=== PATIENT | male | born 1965 | race Caucasian/White ===

== ENCOUNTER 2021-01-07 14:56 | Emergency (ER) | payer OTHER, SELFPAY ==
[2021-01-07 15:08] VITALS: BP 127/79; PULSE 86; RESP 14; TEMP 37.1; O2SAT 98
[2021-01-07 15:19] VITALS: BP 127/79; PULSE 86; RESP 14; TEMP 37.1; O2SAT 98
--- NOTE | 2021-01-07 15:51 | ED.SKABFB ---
HPI - Skin/Abscess/Foreign Bdy General Chief complaint: Skin/Abscess/Foreign Body Stated complaint: Wasp bite to right Hand it's swollen Time Seen by Provider: 01/07/21 15:50 Source: patient and RN notes reviewed Mode of arrival: ambulatory Limitations: no limitations History of Present Illness HPI narrative: 55-year-old male presents with concern for wasp sting. Reports he got stung in the left hand yesterday. He reports he had a welt on the hand after he got stung, however the redness, tightness, swelling has been spreading. He reports swelling, redness in his hand, forearm. Denies pain, reports tightness and some itching. Reports he has been taking 2 Benadryl every 6 hours with no relief of swelling, some relief of itching. MD complaint: insect bite/sting Related Data Home Medications Medication Instructions Recorded Confirmed lovastatin 10 mg PO DAILY 01/07/21 01/07/21 Allergies Allergy/AdvReac Type Severity Reaction Status Date / Time No Known Allergies Allergy Verified 01/07/21 15:18 Review of Systems Review of Systems: CONSTITUTIONAL: Denies malaise, chills, sweats, or fever. ENT: Denies swollen lips, swollen tongue RESPIRATORY: Denies cough or dyspnea. GASTROINTESTINAL: Denies abdominal pain, nausea, vomiting, diarrhea SKIN: Reports swelling, redness, slight itching to the left hand, left lower arm MUSCULOSKELETAL: Denies musculoskeletal pain NEUROLOGIC: Denies numbness, weakness All systems reviewed & are unremarkable except as noted in HPI and below PMFSH Comments At time of signature, agree with nursing past medical, surgical, social and family history. There is no relevant family history pertinent to the presenting complaint Exam Narrative: GENERAL: Well-appearing, well-nourished, and in no acute distress. HEAD: Normocephalic, atraumatic. EYES: PERRLA, conjunctivae clear, and EOMI. ENT: Mucous membranes moist. Oropharynx without edema, erythema or lesions. NECK: Supple. No lymphadenopathy CHEST: Clear to auscultation. No respiratory distress. HEART: Regular rate and rhythm. SKIN: Warm, dry. Left hand erythema, soft edema without induration noted to the left hand, forearm with no fluctuation, warmth. NEURO: Alert and oriented x3. PSYCH: Normal mood and affect Course Course Emergency Course: Patient is aware of diagnosis, understands and agrees to treatment plan. Anticipatory guidance given. Patient agrees to follow-up as directed and is aware of reasons to seek care at the emergency department. Portions of this record may have been created with voice recognition software Vital Signs Vital signs: Vital Signs Temperature 98.8 F 01/07/21 15:08 Pulse Rate 86 01/07/21 15:08 Respiratory Rate 14 01/07/21 15:08 Blood Pressure 127/79 01/07/21 15:08 Pulse Oximetry 98 01/07/21 15:08 Temperature 98.8 F 01/07/21 15:19 Pulse Rate 86 01/07/21 15:19 Respiratory Rate 14 01/07/21 15:19 Blood Pressure 127/79 01/07/21 15:19 Pulse Oximetry 98 01/07/21 15:19 Reviewed. MDM - Skin/Abscess/Foreign Bdy MDM Narrative Medical decision making narrative: Exam findings show no acute concerns or changes; patient is non-toxic appearing and is in no distress. Patient is appropriate for outpatient treatment and follow-up. Differential Diagnosis Differential diagnosis: Likely abscess of skin or subcutaneous tissue, cellulitis, insect bites and contact dermatitis Critical Care Time Critical Care Time Critical Care Time: No Discharge Plan Discharge Clinical Impression: Wasp sting Qualifiers: Encounter type: initial encounter Injury intent: accidental or unintentional Qualified Code(s): T63.461A - Toxic effect of venom of wasps, accidental (unintentional), initial encounter Patient Disposition: Home, Self-Care Condition: Stable Instructions: Insect Bite or Sting (ED) Additional Instructions: Apply ice to the sting site and swollen area for pain and itch relief. Apply ice
== END 2021-01-07 16:04 | disposition home or self-care (01) ==
PROVIDERS: Emergency Provider Nurse Practitioner; PCP Internal Medicine
DX: T63.461A Toxic effect of venom of wasps, accidental (unintentional), initial encounter (principal); E78.00 Pure hypercholesterolemia, unspecified
CPT/HCPCS: 99213; G0463